=== PATIENT | female | born 1955 | race African-American/Black ===

== ENCOUNTER 2017-11-06 20:39 | Emergency (ER) | payer OTHER ==
[~2017-11-06] VITALS: Ht 157.5 cm; Wt 63.5 kg
--- NOTE | ~2017-11-06 | EKG ---
[place] [address] [employer] [facility] [place] [employer] [place] [address] ELECTROCARDIOGRAM REPORT Name: SHAD BHATIA Room #: [facility] Dong#: [id number] Admission: 11/06/17 Attend Phys: Discharge: 11/06/17 Date of : 53 Report #: [id number] THIS REPORT FOR: //name// [facility] ED Test Date: 2017-11-06 Test Time: 20:43:03 Pat Name: SHAD SRIRAM Department: Room: Gender: F Straightener And Aligner: CHATA : 1955 Requested By: [place] Order Number: [id number] MD: Glen Loredo Measurements Intervals [place] Rate: 73 P: -9 TN: 175 QRS: -49 QRSD: 91 T: 53 QT: 412 QTc: 454 Interpretive Statements Sinus rhythm Left anterior fascicular block Poor R wave progression Compared to ECG 05/02/1991 18:35:00 Left anterior fascicular block now present Myocardial infarct finding now present Sinus bradycardia no longer present Electronically Signed On 11-07-2017 7:57:28 POTTERY DECORATOR by Glen Loredo [email or web address] <ELECTRONICALLY SIGNED> By: Glen Loredo MD, [facility] 11/07/17 [id number] Glen Loredo MD, [facility] /EPI
[~2017-11-06 20:39] MED LIST: LISINOPRIL20 MG PO; NORCO 5-325 TA1 EACH PO
[2017-11-06] MEDS ORDERED: NORVASC5 MG PO (20:49)
[2017-11-06 21:02] LABS: HEMATOCRIT 42.7 % (37.0-47.0); HEMOGLOBIN 14.5 gm/dL (12.0-15.0); MCH 30.8 pg (26.0-34.0); MCV 90.8 fL (80.0-100.0); PLATELET COUNT 178 thou/uL (150-400); RDW 13.6 % (10.5-14.5); WBC 6.7 thou/uL (4.0-11.0)
[2017-11-06 21:09] LABS: ANION GAP 7 mmol/L (7-16); BUN 18 mg/dL (7-18); CALCIUM 9.3 mg/dL (8.5-10.1); CHLORIDE 104 mmol/L (98-107); CO2 28 mmol/L (21-32); GLUCOSE 113 mg/dL (74-106); POTASSIUM 3.6 mmol/L (3.5-5.1); SODIUM 139 mmol/L (136-145)
[2017-11-06 21:20] LABS: TROPONIN-I < 0.04 ng/mL (<0.06)
[2017-11-06 21:30] LABS: ABSOLUTE NEUTROPHILS 3.4 thou/uL (1.4-8.2)
[2017-11-06] MEDS ORDERED: PEPCID20 MG PO (23:29)
== END 2017-11-06 23:44 | disposition home or self-care (01) ==
LOC: ER 20:39
PROVIDERS: Nurse Practitioner
DX: R07.9 Chest pain, unspecified (principal); I10 Essential (primary) hypertension; F17.210 Nicotine dependence, cigarettes, uncomplicated